=== PATIENT | male | born 1990 | race Native Hawaiian/Other Pacific Islander ===

== ENCOUNTER 2016-12-22 01:52 | Emergency (ER) | payer OTHER ==
[2016-12-22] MEDS ORDERED: BACTRIM 160MG/800MG DS TAB As Ordered ONE (02:06)
[2016-12-22] MEDS ORDERED: LIDOCAINE 2% MDV 20 ML VIAL As Ordered ONE (02:06)
--- NOTE | 2016-12-22 02:31 | EDDOCDS ---
Physician Documentation [facility] Name: Homero Lazar Age: 25 yrs Sex: Male : 1990 Arrival Date: 12/22/2016 Time: 01:52 Bed I1 / M1 Private MD: Disposition: 12/22/16 02:23 Discharged to Home/Self Care. Impression: Cutaneous abscess of left lower limb. - Condition is Stable. - Discharge Instructions: Abscess, Cellulitis, Incision and Drainage. - Prescriptions for Bactrim DS 800- 160 mg Oral Tablet - take 1 tablet by ORAL route every 12 hours for 10 days; 20 tablet. - Medication Reconciliation, Local Pharmacy Hours form. - Follow up: Private Physician; When: Call to arrange an appointment; Reason: Recheck today's complaints, Continuance of care. - Problem is new. - Symptoms have improved. - Notes: have packing removed in 2 days, continue with warm compresses over abscess/cellulitis Historical: - Allergies: no known allergies; - Home Meds: 1. none - PMHx: none; - PSHx: none; - Immunization history:: Last tetanus immunization: up to date. - Family history: Not pertinent. - Social history: Smoking status: Patient states was never smoker of tobacco. No barriers to communication noted, The patient speaks fluent Dutch. - : The pt / caregiver states he / she is not on anticoagulants. Home medication list is obtained from the patient. - Exposure Risk Screening:: None identified. Vital Signs: 12/22 01:59 BP 161 / 85; Pulse 92; Resp 18; Temp 98.3(O); Pulse Ox 97% ; Weight 127.01 kg / 280.01 tm5 lbs; Height 6 ft. 0 in. (182.88 cm); Pain 5/10; 01:59 Body Mass Index 37.97 (127.01 kg, 182.88 cm) tm5 Procedures: 02:24 I & D: Incision and drainage was performed for an abscess of the lateral aspect of left mo1 calf Prepped with hibiclense. Anesthetized with 3 ml's 2% Lidocaine. Incised with #11 blade. Drained moderate amount purulent fluid. Cultures obtained. Abscess cavity explored. Packed with iodoform gauze, the patient tolerated the procedure poorly. MDM: 02:04 Trimethoprim-Sulfamethoxazole 160 mg-800 mg (DS) 1 tabs PO once ordered. mo1 02:04 Lidocaine 20 mg/mL (2 %) 10 ml Infiltration once; to bedside ordered. mo1 02:04 Dressing ordered. mo1 02:05 Wound Culture & GS - Most Extremities Ordered. EDMS 02:29 Financial registration complete. [facility] Administered Medications: 02:23 Drug: Lidocaine 10 ml [lidocaine 20 mg/mL (2 %) injection solution (10 mL)] {Note: ld5 given to provider.} Route: Infiltration; 02:24 Drug: Trimethoprim-Sulfamethoxazole 1 tabs [sulfamethoxazole 800 mg-trimethoprim 160 mg ld5 tablet (1 tabs)] Route: PO; Signatures: Dispatcher [employer] EDMI Malia Kennedy,RN RN ld5 Jagdish Lott PA PA mo1 Jessica Lazaro [facility] Heaven Pineda,RN RN tm5 PAO
--- NOTE | 2016-12-22 02:31 | EDDOCDS ---
Nurse's Notes [facility] Name: Homero Lazar Age: 25 yrs Sex: Male : 1990 Arrival Date: 12/22/2016 Time: 01:52 Bed I1 / M1 Private MD: Diagnosis: Cutaneous abscess of left lower limb Presentation: 12/22 01:57 Presenting complaint: Patient states: per pt abscess to left posterior calf with tm5 redness & swelling to area, denies fevers. Adult Sepsis Screening: The patient does not have new or worsening altered mentation. Patient's respiratory rate is less than 22. Systolic blood pressure is greater than 100. Patient has a qSOFA score of 0- Negative Sepsis Screen. Suicide/Homicide risk assessment- the patient denies having any suicidal and/or homicidal ideations and does not present with any other emotional, behavioral or mental health complaints. 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 Transition of care: patient was not received from another setting of care. 01:57 Acuity: JACK Level 4 tm5 01:57 Method Of Arrival: Walkin/Carried/Asstd tm5 Triage Assessment: 01:59 Bite Description: Bite sustained to left calf is abscess. General: Appears in no tm5 apparent distress, Behavior is appropriate for age, cooperative. Pain: Location: left leg. HIV screening NA for this visit Offered previously. Neurological: Level of Consciousness is awake, alert, Oriented to person, place, time. Respiratory: Airway is patent Respiratory effort is even, unlabored, Respiratory pattern is regular, symmetrical. Derm: Abscess located on left calf is golf ball sized, has no drainage, is red. Musculoskeletal: No deficits noted. 02:29 Bite Description: by n/a, Animal Information: not applicable. ld5 Historical: - Allergies: no known allergies; - Home Meds: 1. none - PMHx: none; - PSHx: none; - Immunization history:: Last tetanus immunization: up to date. - Family history: Not pertinent. - Social history: Smoking status: Patient states was never smoker of tobacco. No barriers to communication noted, The patient speaks fluent Lao. - : The pt / caregiver states he / she is not on anticoagulants. Home medication list is obtained from the patient. - Exposure Risk Screening:: None identified. Screenin:01 Screening information is obtained from the patient. Fall risk: No risks identified. tm5 Assistance ADL's: requires no assistance with activities of daily living. Abuse/DV Screen: The patient / caregiver reports he/she is: not in a situation that causes fear, pain or injury. Nutritional screening: No deficits noted. Advance Directives: Currently, there is no health care proxy. There is no active DNR order. home support is adequate. Assessment: 02:27 General: Appears in no apparent distress, Behavior is cooperative. Pain: Location: left ld5 calf. Neurological: Level of Consciousness is awake, alert. Respiratory: Airway is patent Respiratory effort is even, unlabored. Derm: Skin abscess to left calf. Vital Signs: 01:59 BP 161 / 85; Pulse 92; Resp 18; Temp 98.3(O); Pulse Ox 97% ; Weight 127.01 kg; Height 6 tm5 ft. 0 in. (182.88 cm); Pain 5/10; 01:59 Body Mass Index 37.97 (127.01 kg, 182.88 cm) tm5 Vitals: 01:59 Log In Time: December 22, 2016 at 02:00. tm5 ED Course: 01:54 Patient visited by Alesia Rodríguez Reg. hs2 01:54 Patient moved to Waiting hs2 01:56 Patient moved to Triage 1 tm5 01:58 Triage Initiated tm5 02:02 Jagdish Lott PA is PHCP. mo1 02:02 Vijay Cosme DO is Attending Physician. mo1 02:03 Patient visited by Jagdish Lott PA. mo1 02:03 Patient moved to I1 / M1 mo1 02:20 Assist provider with I & D: of an abscess on calf Performed by Jagdish MONTAÑO Wound ld5 packed. iodoform gauze, Dressing with kerlix Patient tolerated well. 02:26 Wound Culture & GS - Most Extremities Sent. ld5 02:27 The patient / caregiver is instructed regarding the plan of care and ED course. Patient ld5 has correct armband on for positive identification. 02:27 No IV's were initiated during this patient's visit. ld5 02:30 Patient visited by Malia Kennedy RN. ld5 Administered Medications: 02:23 Drug: Lidocaine 10 ml [lidocaine 20 mg/mL (2 %) injection solution (10 mL)] {Note: ld5 given to provider.} Route: Infiltration; 02:24 Drug: Trimethoprim-Sulfamethoxazole 1 tabs [sulfamethoxazole 800 mg-trimethoprim 160 mg ld5 tablet (1 tabs)] Route: PO; Order Results: There are currently no results for this order. Outcome: 02:23 Discharge ordered by Provider. mo1 02:29 Discharge Assessment: Patient awake, alert and oriented x 3. No cognitive and/or ld5 functional deficits noted. Patient verbalized understanding of disposition instructions. patient administered narcotics - no. The following High Risk Discharge criteria are identified: None. Discharged to home ambulatory. Condition: stable. Discharge instructions given to patient, Instructed on discharge instructions, follow up and referral plans. medication usage, wound care, Demonstrated understanding of instructions, medications, Pt was receptive of discharge instructions/ teaching. Prescriptions given X 1. No special radiology studies were completed. Property :Personal belongings accompany Pt. 02:30 Patient left the ED. ld5 Signatures: Malia Kennedy RN RN ld5 Jagdish Lott PA PA mo1 Alesia Rodríguez, [facility] Reg hs2 Heaven PinedaRN RN tm5 MTDD
--- NOTE | 2016-12-24 03:30 | EDDOCDS ---
Physician Documentation [facility] Name: Homero Lazar Age: 25 yrs Sex: Male : 1990 Arrival Date: 12/22/2016 Time: 01:52 Bed I1 / M1 Private MD: Disposition: 12/22/16 02:23 Discharged to Home/Self Care. Impression: Cutaneous abscess of left lower limb. - Condition is Stable. - Discharge Instructions: Abscess, Cellulitis, Incision and Drainage. - Prescriptions for Bactrim DS 800- 160 mg Oral Tablet - take 1 tablet by ORAL route every 12 hours for 10 days; 20 tablet. - Medication Reconciliation, Local Pharmacy Hours form. - Follow up: Private Physician; When: Call to arrange an appointment; Reason: Recheck today's complaints, Continuance of care. - Problem is new. - Symptoms have improved. - Notes: have packing removed in 2 days, continue with warm compresses over abscess/cellulitis Historical: - Allergies: no known allergies; - Home Meds: 1. none - PMHx: none; - PSHx: none; - Immunization history:: Last tetanus immunization: up to date. - Family history: Not pertinent. - Social history: Smoking status: Patient states was never smoker of tobacco. No barriers to communication noted, The patient speaks fluent Bangladeshi. - : The pt / caregiver states he / she is not on anticoagulants. Home medication list is obtained from the patient. - Exposure Risk Screening:: None identified. Vital Signs: 12/22 01:59 BP 161 / 85; Pulse 92; Resp 18; Temp 98.3(O); Pulse Ox 97% ; Weight 127.01 kg / 280.01 tm5 lbs; Height 6 ft. 0 in. (182.88 cm); Pain 5/10; 01:59 Body Mass Index 37.97 (127.01 kg, 182.88 cm) tm5 Procedures: 02:24 I & D: Incision and drainage was performed for an abscess of the lateral aspect of left mo1 calf Prepped with hibiclense. Anesthetized with 3 ml's 2% Lidocaine. Incised with #11 blade. Drained moderate amount purulent fluid. Cultures obtained. Abscess cavity explored. Packed with iodoform gauze, the patient tolerated the procedure poorly. MDM: 02:04 Trimethoprim-Sulfamethoxazole 160 mg-800 mg (DS) 1 tabs PO once ordered. mo1 02:04 Lidocaine 20 mg/mL (2 %) 10 ml Infiltration once; to bedside ordered. mo1 02:04 Dressing ordered. mo1 02:05 Wound Culture & GS - Most Extremities Ordered. EDMS 02:29 Financial registration complete. [facility] 02:36 [facility] Payment Agreement was scanned into [employer] and attached to record. hs2 14:08 T-Sheet-- Draft Copy was scanned into [employer] and attached to record. gb Administered Medications: 02:23 Drug: Lidocaine 10 ml [lidocaine 20 mg/mL (2 %) injection solution (10 mL)] {Note: ld5 given to provider.} Route: Infiltration; 02:24 Drug: Trimethoprim-Sulfamethoxazole 1 tabs [sulfamethoxazole 800 mg-trimethoprim 160 mg ld5 tablet (1 tabs)] Route: PO; Signatures: Dispatcher [employer] EDCT Dia Lamb, Reg Reg gb Malia Kennedy,RN RN ld5 Jagdish Lott PA PA mo1 Jessica Lazaro [facility] Alesia Rodríguez, Reg Reg hs2 Heaven Pineda,RN RN tm5 The chart was reviewed and I authenticate all verbal orders and agree with the evaluation and treatment provided.Attachments: 02:36 [facility] Payment Agreement hs2 14:08 T-Sheet-- Draft Copy gb Chart Complete MTDD
--- NOTE | 2016-12-24 03:30 | EDDOCDS ---
Physician Documentation [facility] Name: Homero Lazar Age: 25 yrs Sex: Male : 1990 Arrival Date: 12/22/2016 Time: 01:52 Bed I1 / M1 Private MD: Disposition: 12/22/16 02:23 Discharged to Home/Self Care. Impression: Cutaneous abscess of left lower limb. - Condition is Stable. - Discharge Instructions: Abscess, Cellulitis, Incision and Drainage. - Prescriptions for Bactrim DS 800- 160 mg Oral Tablet - take 1 tablet by ORAL route every 12 hours for 10 days; 20 tablet. - Medication Reconciliation, Local Pharmacy Hours form. - Follow up: Private Physician; When: Call to arrange an appointment; Reason: Recheck today's complaints, Continuance of care. - Problem is new. - Symptoms have improved. - Notes: have packing removed in 2 days, continue with warm compresses over abscess/cellulitis Historical: - Allergies: no known allergies; - Home Meds: 1. none - PMHx: none; - PSHx: none; - Immunization history:: Last tetanus immunization: up to date. - Family history: Not pertinent. - Social history: Smoking status: Patient states was never smoker of tobacco. No barriers to communication noted, The patient speaks fluent Filipino. - : The pt / caregiver states he / she is not on anticoagulants. Home medication list is obtained from the patient. - Exposure Risk Screening:: None identified. Vital Signs: 12/22 01:59 BP 161 / 85; Pulse 92; Resp 18; Temp 98.3(O); Pulse Ox 97% ; Weight 127.01 kg / 280.01 tm5 lbs; Height 6 ft. 0 in. (182.88 cm); Pain 5/10; 01:59 Body Mass Index 37.97 (127.01 kg, 182.88 cm) tm5 Procedures: 02:24 I & D: Incision and drainage was performed for an abscess of the lateral aspect of left mo1 calf Prepped with hibiclense. Anesthetized with 3 ml's 2% Lidocaine. Incised with #11 blade. Drained moderate amount purulent fluid. Cultures obtained. Abscess cavity explored. Packed with iodoform gauze, the patient tolerated the procedure poorly. MDM: 02:04 Trimethoprim-Sulfamethoxazole 160 mg-800 mg (DS) 1 tabs PO once ordered. mo1 02:04 Lidocaine 20 mg/mL (2 %) 10 ml Infiltration once; to bedside ordered. mo1 02:04 Dressing ordered. mo1 02:05 Wound Culture & GS - Most Extremities Ordered. EDMS 02:29 Financial registration complete. [facility] 02:36 [facility] Payment Agreement was scanned into [employer] and attached to record. hs2 14:08 T-Sheet-- Draft Copy was scanned into [employer] and attached to record. gb Administered Medications: 02:23 Drug: Lidocaine 10 ml [lidocaine 20 mg/mL (2 %) injection solution (10 mL)] {Note: ld5 given to provider.} Route: Infiltration; 02:24 Drug: Trimethoprim-Sulfamethoxazole 1 tabs [sulfamethoxazole 800 mg-trimethoprim 160 mg ld5 tablet (1 tabs)] Route: PO; Signatures: Dispatcher [employer] EDMA Dia Lamb, Reg Reg gb Malia Kennedy,RN RN ld5 Jagdish Lott PA PA mo1 Jessica Lazaro [facility] Alesia Rodríguez, Reg Reg hs2 Heaven Pineda,RN RN tm5 The chart was reviewed and I authenticate all verbal orders and agree with the evaluation and treatment provided.Attachments: 02:36 [facility] Payment Agreement hs2 14:08 T-Sheet-- Draft Copy gb Chart Complete MTDD
--- NOTE | 2016-12-24 03:31 | EDDOCDS ---
Nurse's Notes [facility] Name: Homero Lazar Age: 25 yrs Sex: Male : 1990 Arrival Date: 12/22/2016 Time: 01:52 Bed I1 / M1 Private MD: Diagnosis: Cutaneous abscess of left lower limb Presentation: 12/22 01:57 Presenting complaint: Patient states: per pt abscess to left posterior calf with tm5 redness & swelling to area, denies fevers. Adult Sepsis Screening: The patient does not have new or worsening altered mentation. Patient's respiratory rate is less than 22. Systolic blood pressure is greater than 100. Patient has a qSOFA score of 0- Negative Sepsis Screen. Suicide/Homicide risk assessment- the patient denies having any suicidal and/or homicidal ideations and does not present with any other emotional, behavioral or mental health complaints. 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 Transition of care: patient was not received from another setting of care. 01:57 Acuity: JACK Level 4 tm5 01:57 Method Of Arrival: Walkin/Carried/Asstd tm5 Triage Assessment: 01:59 Bite Description: Bite sustained to left calf is abscess. General: Appears in no tm5 apparent distress, Behavior is appropriate for age, cooperative. Pain: Location: left leg. HIV screening NA for this visit Offered previously. Neurological: Level of Consciousness is awake, alert, Oriented to person, place, time. Respiratory: Airway is patent Respiratory effort is even, unlabored, Respiratory pattern is regular, symmetrical. Derm: Abscess located on left calf is golf ball sized, has no drainage, is red. Musculoskeletal: No deficits noted. 02:29 Bite Description: by n/a, Animal Information: not applicable. ld5 Historical: - Allergies: no known allergies; - Home Meds: 1. none - PMHx: none; - PSHx: none; - Immunization history:: Last tetanus immunization: up to date. - Family history: Not pertinent. - Social history: Smoking status: Patient states was never smoker of tobacco. No barriers to communication noted, The patient speaks fluent Persian. - : The pt / caregiver states he / she is not on anticoagulants. Home medication list is obtained from the patient. - Exposure Risk Screening:: None identified. Screenin:01 Screening information is obtained from the patient. Fall risk: No risks identified. tm5 Assistance ADL's: requires no assistance with activities of daily living. Abuse/DV Screen: The patient / caregiver reports he/she is: not in a situation that causes fear, pain or injury. Nutritional screening: No deficits noted. Advance Directives: Currently, there is no health care proxy. There is no active DNR order. home support is adequate. Assessment: 02:27 General: Appears in no apparent distress, Behavior is cooperative. Pain: Location: left ld5 calf. Neurological: Level of Consciousness is awake, alert. Respiratory: Airway is patent Respiratory effort is even, unlabored. Derm: Skin abscess to left calf. Vital Signs: 01:59 BP 161 / 85; Pulse 92; Resp 18; Temp 98.3(O); Pulse Ox 97% ; Weight 127.01 kg; Height 6 tm5 ft. 0 in. (182.88 cm); Pain 5/10; 01:59 Body Mass Index 37.97 (127.01 kg, 182.88 cm) tm5 Vitals: 01:59 Log In Time: December 22, 2016 at 02:00. tm5 ED Course: 01:54 Patient visited by Alesia Rodríguez Reg. hs2 01:54 Patient moved to Waiting hs2 01:56 Patient moved to Triage 1 tm5 01:58 Triage Initiated tm5 02:02 Jagdish Lott PA is PHCP. mo1 02:02 Vijay Cosme DO is Attending Physician. mo1 02:03 Patient visited by Jagdish Lott PA. mo1 02:03 Patient moved to I1 / M1 mo1 02:20 Assist provider with I & D: of an abscess on calf Performed by Jagdish MONTAÑO Wound ld5 packed. iodoform gauze, Dressing with kerlix Patient tolerated well. 02:26 Wound Culture & GS - Most Extremities Sent. ld5 02:27 The patient / caregiver is instructed regarding the plan of care and ED course. Patient ld5 has correct armband on for positive identification. 02:27 No IV's were initiated during this patient's visit. ld5 02:30 Patient visited by Malia Kennedy RN. ld5 02:36 [facility] [place] Payment Agreement was scanned into [employer] and attached to record. hs2 14:08 T-Sheet-- Draft Copy was scanned into [employer] and attached to record. gb Administered Medications: 02:23 Drug: Lidocaine 10 ml [lidocaine 20 mg/mL (2 %) injection solution (10 mL)] {Note: ld5 given to provider.} Route: Infiltration; 02:24 Drug: Trimethoprim-Sulfamethoxazole 1 tabs [sulfamethoxazole 800 mg-trimethoprim 160 mg ld5 tablet (1 tabs)] Route: PO; Order Results: Lab Order: Wound Culture & GS - Most Extremities; SPEC'M 12/22/16 02:21 Test: GRAM STAIN; Value: GRAM STAIN RESULT; Status: F Test: GRAM STAIN; Value: MANY RBCS; Status: F Test: GRAM STAIN; Value: FEW WBCS; Status: F Test: GRAM STAIN; Value: MANY GRAM POSITIVE COCCI IN PAIRS; Status: F Outcome: 02:23 Discharge ordered by Provider. mo1 02:29 Discharge Assessment: Patient awake, alert and oriented x 3. No cognitive and/or ld5 functional deficits noted. Patient verbalized understanding of disposition instructions. patient administered narcotics - no. The following High Risk Discharge criteria are identified: None. Discharged to home ambulatory. Condition: stable. Discharge instructions given to patient, Instructed on discharge instructions, follow up and referral plans. medication usage, wound care, Demonstrated understanding of instructions, medications, Pt was receptive of discharge instructions/ teaching. Prescriptions given X 1. No special radiology studies were completed. Property :Personal belongings accompany Pt. 02:30 Patient left the ED. ld5 Signatures: Dia Lamb, Reg Reg gb Malia Kennedy,RN RN ld5 Jagdish Lott PA PA mo1 Alesia Rodríguez, Reg Reg hs2 Heaven Pineda RN RN tm5 Chart Complete MTDD
--- NOTE | 2016-12-26 14:49 | EDDOCDS ---
Physician Documentation [facility] Name: Homero Lazar Age: 25 yrs Sex: Male : 1990 Arrival Date: 12/22/2016 Time: 01:52 Bed I1 / M1 Private MD: Disposition: 12/22/16 02:23 Discharged to Home/Self Care. Impression: Cutaneous abscess of left lower limb. - Condition is Stable. - Discharge Instructions: Abscess, Cellulitis, Incision and Drainage. - Prescriptions for Bactrim DS 800- 160 mg Oral Tablet - take 1 tablet by ORAL route every 12 hours for 10 days; 20 tablet. - Medication Reconciliation, Local Pharmacy Hours form. - Follow up: Private Physician; When: Call to arrange an appointment; Reason: Recheck today's complaints, Continuance of care. - Problem is new. - Symptoms have improved. - Notes: have packing removed in 2 days, continue with warm compresses over abscess/cellulitis Historical: - Allergies: no known allergies; - Home Meds: 1. none - PMHx: none; - PSHx: none; - Immunization history:: Last tetanus immunization: up to date. - Family history: Not pertinent. - Social history: Smoking status: Patient states was never smoker of tobacco. No barriers to communication noted, The patient speaks fluent Haitian. - : The pt / caregiver states he / she is not on anticoagulants. Home medication list is obtained from the patient. - Exposure Risk Screening:: None identified. Vital Signs: 12/22 01:59 BP 161 / 85; Pulse 92; Resp 18; Temp 98.3(O); Pulse Ox 97% ; Weight 127.01 kg / 280.01 tm5 lbs; Height 6 ft. 0 in. (182.88 cm); Pain 5/10; 01:59 Body Mass Index 37.97 (127.01 kg, 182.88 cm) tm5 Procedures: 02:24 I & D: Incision and drainage was performed for an abscess of the lateral aspect of left mo1 calf Prepped with hibiclense. Anesthetized with 3 ml's 2% Lidocaine. Incised with #11 blade. Drained moderate amount purulent fluid. Cultures obtained. Abscess cavity explored. Packed with iodoform gauze, the patient tolerated the procedure poorly. MDM: 02:04 Trimethoprim-Sulfamethoxazole 160 mg-800 mg (DS) 1 tabs PO once ordered. mo1 02:04 Lidocaine 20 mg/mL (2 %) 10 ml Infiltration once; to bedside ordered. mo1 02:04 Dressing ordered. mo1 02:05 Wound Culture & GS - Most Extremities Ordered. EDMS 02:29 Financial registration complete. [facility] 02:36 [facility] Payment Agreement was scanned into [employer] and attached to record. hs2 14:08 T-Sheet-- Draft Copy was scanned into [employer] and attached to record. gb Administered Medications: 02:23 Drug: Lidocaine 10 ml [lidocaine 20 mg/mL (2 %) injection solution (10 mL)] {Note: ld5 given to provider.} Route: Infiltration; 02:24 Drug: Trimethoprim-Sulfamethoxazole 1 tabs [sulfamethoxazole 800 mg-trimethoprim 160 mg ld5 tablet (1 tabs)] Route: PO; Signatures: Dispatcher [employer] EDNY Dia Lamb, Reg Reg gb Malia Kennedy,RN RN ld5 Jagdish Lott PA PA mo1 Jessica Lazaro [facility] Alesia Rodríguez, Reg Reg hs2 Heaven Pineda,RN RN tm5 The chart was reviewed and I authenticate all verbal orders and agree with the evaluation and treatment provided.Attachments: 02:36 [facility] Payment Agreement hs2 14:08 T-Sheet-- Draft Copy gb Chart Complete MTDD
--- NOTE | 2016-12-26 14:49 | EDDOCDS ---
Physician Documentation [facility] Name: Homero Lazar Age: 25 yrs Sex: Male : 1990 Arrival Date: 12/22/2016 Time: 01:52 Bed I1 / M1 Private MD: Disposition: 12/22/16 02:23 Discharged to Home/Self Care. Impression: Cutaneous abscess of left lower limb. - Condition is Stable. - Discharge Instructions: Abscess, Cellulitis, Incision and Drainage. - Prescriptions for Bactrim DS 800- 160 mg Oral Tablet - take 1 tablet by ORAL route every 12 hours for 10 days; 20 tablet. - Medication Reconciliation, Local Pharmacy Hours form. - Follow up: Private Physician; When: Call to arrange an appointment; Reason: Recheck today's complaints, Continuance of care. - Problem is new. - Symptoms have improved. - Notes: have packing removed in 2 days, continue with warm compresses over abscess/cellulitis Historical: - Allergies: no known allergies; - Home Meds: 1. none - PMHx: none; - PSHx: none; - Immunization history:: Last tetanus immunization: up to date. - Family history: Not pertinent. - Social history: Smoking status: Patient states was never smoker of tobacco. No barriers to communication noted, The patient speaks fluent Samoan. - : The pt / caregiver states he / she is not on anticoagulants. Home medication list is obtained from the patient. - Exposure Risk Screening:: None identified. Vital Signs: 12/22 01:59 BP 161 / 85; Pulse 92; Resp 18; Temp 98.3(O); Pulse Ox 97% ; Weight 127.01 kg / 280.01 tm5 lbs; Height 6 ft. 0 in. (182.88 cm); Pain 5/10; 01:59 Body Mass Index 37.97 (127.01 kg, 182.88 cm) tm5 Procedures: 02:24 I & D: Incision and drainage was performed for an abscess of the lateral aspect of left mo1 calf Prepped with hibiclense. Anesthetized with 3 ml's 2% Lidocaine. Incised with #11 blade. Drained moderate amount purulent fluid. Cultures obtained. Abscess cavity explored. Packed with iodoform gauze, the patient tolerated the procedure poorly. MDM: 02:04 Trimethoprim-Sulfamethoxazole 160 mg-800 mg (DS) 1 tabs PO once ordered. mo1 02:04 Lidocaine 20 mg/mL (2 %) 10 ml Infiltration once; to bedside ordered. mo1 02:04 Dressing ordered. mo1 02:05 Wound Culture & GS - Most Extremities Ordered. EDMS 02:29 Financial registration complete. [facility] 02:36 [facility] Payment Agreement was scanned into [employer] and attached to record. hs2 14:08 T-Sheet-- Draft Copy was scanned into [employer] and attached to record. gb Administered Medications: 02:23 Drug: Lidocaine 10 ml [lidocaine 20 mg/mL (2 %) injection solution (10 mL)] {Note: ld5 given to provider.} Route: Infiltration; 02:24 Drug: Trimethoprim-Sulfamethoxazole 1 tabs [sulfamethoxazole 800 mg-trimethoprim 160 mg ld5 tablet (1 tabs)] Route: PO; Signatures: Dispatcher [employer] EDPA Dia Lamb, Reg Reg gb Malia Kennedy,RN RN ld5 Jagdish Lott PA PA mo1 Jessica Lazaro [facility] Alesia Rodríguez, Reg Reg hs2 Heaven Pineda,RN RN tm5 The chart was reviewed and I authenticate all verbal orders and agree with the evaluation and treatment provided.Attachments: 02:36 [facility] Payment Agreement hs2 14:08 T-Sheet-- Draft Copy gb Chart Complete MTDD
--- NOTE | 2016-12-26 14:49 | EDDOCDS ---
Nurse's Notes [facility] Name: Homero Lazar Age: 25 yrs Sex: Male : 1990 Arrival Date: 12/22/2016 Time: 01:52 Bed I1 / M1 Private MD: Diagnosis: Cutaneous abscess of left lower limb Presentation: 12/22 01:57 Presenting complaint: Patient states: per pt abscess to left posterior calf with tm5 redness & swelling to area, denies fevers. Adult Sepsis Screening: The patient does not have new or worsening altered mentation. Patient's respiratory rate is less than 22. Systolic blood pressure is greater than 100. Patient has a qSOFA score of 0- Negative Sepsis Screen. Suicide/Homicide risk assessment- the patient denies having any suicidal and/or homicidal ideations and does not present with any other emotional, behavioral or mental health complaints. 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 Transition of care: patient was not received from another setting of care. 01:57 Acuity: JACK Level 4 tm5 01:57 Method Of Arrival: Walkin/Carried/Asstd tm5 Triage Assessment: 01:59 Bite Description: Bite sustained to left calf is abscess. General: Appears in no tm5 apparent distress, Behavior is appropriate for age, cooperative. Pain: Location: left leg. HIV screening NA for this visit Offered previously. Neurological: Level of Consciousness is awake, alert, Oriented to person, place, time. Respiratory: Airway is patent Respiratory effort is even, unlabored, Respiratory pattern is regular, symmetrical. Derm: Abscess located on left calf is golf ball sized, has no drainage, is red. Musculoskeletal: No deficits noted. 02:29 Bite Description: by n/a, Animal Information: not applicable. ld5 Historical: - Allergies: no known allergies; - Home Meds: 1. none - PMHx: none; - PSHx: none; - Immunization history:: Last tetanus immunization: up to date. - Family history: Not pertinent. - Social history: Smoking status: Patient states was never smoker of tobacco. No barriers to communication noted, The patient speaks fluent Pashto. - : The pt / caregiver states he / she is not on anticoagulants. Home medication list is obtained from the patient. - Exposure Risk Screening:: None identified. Screenin:01 Screening information is obtained from the patient. Fall risk: No risks identified. tm5 Assistance ADL's: requires no assistance with activities of daily living. Abuse/DV Screen: The patient / caregiver reports he/she is: not in a situation that causes fear, pain or injury. Nutritional screening: No deficits noted. Advance Directives: Currently, there is no health care proxy. There is no active DNR order. home support is adequate. Assessment: 02:27 General: Appears in no apparent distress, Behavior is cooperative. Pain: Location: left ld5 calf. Neurological: Level of Consciousness is awake, alert. Respiratory: Airway is patent Respiratory effort is even, unlabored. Derm: Skin abscess to left calf. Vital Signs: 01:59 BP 161 / 85; Pulse 92; Resp 18; Temp 98.3(O); Pulse Ox 97% ; Weight 127.01 kg; Height 6 tm5 ft. 0 in. (182.88 cm); Pain 5/10; 01:59 Body Mass Index 37.97 (127.01 kg, 182.88 cm) tm5 Vitals: 01:59 Log In Time: December 22, 2016 at 02:00. tm5 ED Course: 01:54 Patient visited by Alesia Rodríguez Reg. hs2 01:54 Patient moved to Waiting hs2 01:56 Patient moved to Triage 1 tm5 01:58 Triage Initiated tm5 02:02 Jagdish Lott PA is PHCP. mo1 02:02 Vijay Cosme DO is Attending Physician. mo1 02:03 Patient visited by Jagdish Lott PA. mo1 02:03 Patient moved to I1 / M1 mo1 02:20 Assist provider with I & D: of an abscess on calf Performed by Jagdish MONTAÑO Wound ld5 packed. iodoform gauze, Dressing with kerlix Patient tolerated well. 02:26 Wound Culture & GS - Most Extremities Sent. ld5 02:27 The patient / caregiver is instructed regarding the plan of care and ED course. Patient ld5 has correct armband on for positive identification. 02:27 No IV's were initiated during this patient's visit. ld5 02:30 Patient visited by Malia Kennedy RN. ld5 02:36 [facility] Payment Agreement was scanned into [employer] and attached to record. hs2 14:08 T-Sheet-- Draft Copy was scanned into [employer] and attached to record. gb Administered Medications: 02:23 Drug: Lidocaine 10 ml [lidocaine 20 mg/mL (2 %) injection solution (10 mL)] {Note: ld5 given to provider.} Route: Infiltration; 02:24 Drug: Trimethoprim-Sulfamethoxazole 1 tabs [sulfamethoxazole 800 mg-trimethoprim 160 mg ld5 tablet (1 tabs)] Route: PO; Order Results: Lab Order: Wound Culture & GS - Most Extremities; SPEC'M 12/22/16 02:21 Test: GRAM STAIN; Value: GRAM STAIN RESULT; Status: F Test: GRAM STAIN; Value: MANY RBCS; Status: F Test: GRAM STAIN; Value: FEW WBCS; Status: F Test: GRAM STAIN; Value: MANY GRAM POSITIVE COCCI IN PAIRS; Status: F Test: WOUND CULTURE; Value: <EXTERNAL COMMENT eCWMed> FULL REPORT IN LAB NOTES (eCW and [employer]ent).; Status: F Test: WOUND CULTURE; Value: ORGANISM 1: STAPHYLOCOCCUS AUREUS; Status: F Test: WOUND CULTURE; Value: STAPHYLOCOCCUS AUREUS; Status: F Test: WOUND CULTURE; Value: QUANTITY OF GROWTH HEAVY; Status: F Test: WOUND CULTURE; Value: GRAM POS SENSI - VITEK 67; Status: F Test: WOUND CULTURE; Value: Method: VIT2; Status: F Test: WOUND CULTURE; Value: TETRACYCLINE <=1 S; Status: F Test: WOUND CULTURE; Value: PENICILLIN G 0.06 R; Status: F Test: WOUND CULTURE; Value: TRIMETHOPRIM/SULFAMETHOXAZOLE <=10 S; Status: F Test: WOUND CULTURE; Value: ERYTHROMYCIN <=0.25 S; Status: F Test: WOUND CULTURE; Value: GENTAMICIN <=0.5 S; Status: F Test: WOUND CULTURE; Value: CLINDAMYCIN <=0.25 S; Status: F Test: WOUND CULTURE; Value: OXACILLIN <=0.25 S; Status: F Test: WOUND CULTURE; Value: VANCOMYCIN <=0.5 S; Status: F Test: WOUND CULTURE; Value: LINEZOLID (ZYVOX) 2 S; Status: F Outcome: 02:23 Discharge ordered by Provider. mo1 02:29 Discharge Assessment: Patient awake, alert and oriented x 3. No cognitive and/or ld5 functional deficits noted. Patient verbalized understanding of disposition instructions. patient administered narcotics - no. The following High Risk Discharge criteria are identified: None. Discharged to home ambulatory. Condition: stable. Discharge instructions given to patient, Instructed on discharge instructions, follow up and referral plans. medication usage, wound care, Demonstrated understanding of instructions, medications, Pt was receptive of discharge instructions/ teaching. Prescriptions given X 1. No special radiology studies were completed. Property :Personal belongings accompany Pt. 02:30 Patient left the ED. ld5 Signatures: Dia Lamb, Reg Reg gb Malia Kennedy,RN RN ld5 Jagdish Lott PA PA mo1 Alesia Rodríguez, Reg Reg hs2 Heaven PinedaRN RN tm5 Chart Complete MTDD
== END 2016-12-22 02:30 | disposition home or self-care (01) ==
LOC: M ED 01:52
DX: L02.416 Cutaneous abscess of left lower limb (principal)

== ENCOUNTER 2016-12-23 18:39 | Emergency (ER) | payer OTHER ==
[2016-12-23] MEDS ORDERED: BACTRIM 160MG/800MG DS TAB As Ordered ONE (19:22)
--- NOTE | 2016-12-23 19:36 | EDDOCDS ---
Nurse's Notes [facility] Name: Homero Lazar Age: 25 yrs Sex: Male : 1990 Arrival Date: 12/23/2016 Time: 18:39 Bed TR5 Private MD: Other - Complete Info On Cds Diagnosis: Cutaneous abscess of left lower limb-Recheck Presentation: 12/23 18:44 Presenting complaint: Patient states: had abscess drained and packed early Sunday am. srm here for recheck and to have packing removed. left lower leg. Adult Sepsis Screening: The patient does not have new or worsening altered mentation. Patient's respiratory rate is less than 22. Systolic blood pressure is greater than 100. Patient has a qSOFA score of 0- Negative Sepsis Screen. Suicide/Homicide risk assessment- the patient denies having any suicidal and/or homicidal ideations and does not present with any other emotional, behavioral or mental health complaints. 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 Transition of care: patient was not received from another setting of care. 18:44 Acuity: JACK Level 4 [facility] 18:44 Method Of Arrival: Walkin/Carried/Asstd [facility] Triage Assessment: 18:46 General: Appears in no apparent distress, Behavior is appropriate for age, cooperative. srm Pain: Pain currently is 6 out of 10 on a pain scale. HIV screening NA for this visit Offered previously. Historical: - Allergies: no known allergies; - Home Meds: 1. Bactrim DS 800-160 mg Oral tab 1 tab every 12 hours (Last dose: 12/23/2016 07:00) - PMHx: none; - PSHx: none; - Social history: Smoking status: Patient states was never smoker of tobacco. No barriers to communication noted, The patient speaks fluent Hong Konger, Speaks appropriately for age. - Family history: Not pertinent. - : The pt / caregiver states he / she is not on anticoagulants. Home medication list is obtained from the patient. - Exposure Risk Screening:: None identified. Screenin:33 Screening information is obtained from the patient. Fall risk: No risks identified. cz Assistance ADL's: requires no assistance with activities of daily living. Abuse/DV Screen: The patient / caregiver reports he/she is: not in a situation that causes fear, pain or injury. There is an injury present. Nutritional screening: No deficits noted. Advance Directives: Currently, there is no health care proxy. There is no active DNR order. There is no living will. There is no Power of Deburr Technician. Advance directive information has not previously been placed in an [facility] medical record. Further advance directive information is declined. home support is adequate. Assessment: 19:33 Reassessment: Patient appears in no apparent distress at this time. General: Behavior cz is appropriate for age. Vital Signs: 18:41 BP 126 / 66; Pulse 75; Resp 18 S; Temp 96.4(O); Pulse Ox 96% on R/A; Weight 127.01 kg gr2 (R); Height 6 ft. 0 in. (182.88 cm) (R); Pain 5/10; 18:41 Body Mass Index 37.97 (127.01 kg, 182.88 cm) gr2 Vitals: 18:41 Log In Time: December 23, 2016 at 18:41. gr2 ED Course: 18:41 Patient visited by Jigna Mustafa. gr2 18:41 Other - Complete Info On Cds is Private Physician. gr2 18:41 Patient moved to Waiting gr2 18:42 Patient visited by Jigna Mustafa. gr2 18:43 Patient moved to Pre RCE gr2 18:45 Triage Initiated srm 19:08 Umberto Trivedi PA-C is PHCP. dk1 19:08 Jorge Victoria DO is Attending Physician. dk1 19:08 Patient moved to Triage 1 cz 19:10 Patient visited by Umberto Trivedi PA-C. dk1 19:24 [facility]. dk1 19:27 Patient moved to TR5 cz 19:30 Patient name changed from Homero\S\W\S\Pututau\S\ to Homero\S\Sanchez\S\Pututau. EDMS 19:33 The patient / caregiver is instructed regarding the plan of care and ED course. cz 19:33 No IV's were initiated during this patient's visit. Assist provider with I & D: cz repacking of I&D site. 19:34 [facility] Payment Agreement was scanned into [employer] and attached to record. gb Administered Medications: 19:26 Drug: Trimethoprim-Sulfamethoxazole (MRSA dose) 2 tabs [sulfamethoxazole 800 cz mg-trimethoprim 160 mg tablet (2 tabs)] Route: PO; Order Results: There are currently no results for this order. Outcome: 19:24 Discharge ordered by Provider. dk1 19:33 Discharge Assessment: Patient awake, alert and oriented x 3. No cognitive and/or cz functional deficits noted. Patient verbalized understanding of disposition instructions. patient administered narcotics - no. The following High Risk Discharge criteria are identified: None. Discharged to home ambulatory. Condition: stable. Discharge instructions given to patient, Instructed on discharge instructions, follow up and referral plans. Demonstrated understanding of instructions, Pt was receptive of discharge instructions/ teaching. No special radiology studies were completed. Property :Personal belongings accompany Pt. 19:35 Patient left the ED. cz Signatures: Dispatcher [employer] EDMS Alexia Krishnan, RN RN Daniel Tucker RN RN Dia Romero, Umberto Kim, PA-C PA-C dk1 Jigna Mustafa gr2 MTDD
--- NOTE | 2016-12-23 19:36 | EDDOCDS ---
Physician Documentation [facility] Name: Homero Lazar Age: 25 yrs Sex: Male : 1990 Arrival Date: 12/23/2016 Time: 18:39 Bed TR5 Private MD: Other - Complete Info On Cds Disposition: 12/23/16 19:24 Discharged to Home/Self Care. Impression: Cutaneous abscess of left lower limb - Recheck. - Condition is Stable. - Discharge Instructions: Abscess. - Medication Reconciliation, Local Pharmacy Hours form. - Follow up: Jennifer Yañez [facility]; When: 1 - 2 days; Reason: Recheck today's complaints, Continuance of care. Follow up: Emergency Department; When: As needed; Reason: Worsening of conditions. - Problem is an ongoing problem. - Symptoms have improved. Historical: - Allergies: no known allergies; - Home Meds: 1. Bactrim DS 800-160 mg Oral tab 1 tab every 12 hours (Last dose: 12/23/2016 07:00) - PMHx: none; - PSHx: none; - Social history: Smoking status: Patient states was never smoker of tobacco. No barriers to communication noted, The patient speaks fluent Greek, Speaks appropriately for age. - Family history: Not pertinent. - : The pt / caregiver states he / she is not on anticoagulants. Home medication list is obtained from the patient. - Exposure Risk Screening:: None identified. Vital Signs: 12/23 18:41 BP 126 / 66; Pulse 75; Resp 18 S; Temp 96.4(O); Pulse Ox 96% on R/A; Weight 127.01 kg / gr2 280.01 lbs (R); Height 6 ft. 0 in. (182.88 cm) (R); Pain 5/10; 18:41 Body Mass Index 37.97 (127.01 kg, 182.88 cm) gr2 MDM: 19:16 Trimethoprim-Sulfamethoxazole (MRSA dose) 160 mg-800 mg (DS) 2 tabs PO once ordered. dk1 19:16 Wound Care ordered. dk1 19:27 Financial registration complete. 19:34 [facility] Payment Agreement was scanned into [employer] and attached to record. gb Administered Medications: 19:26 Drug: Trimethoprim-Sulfamethoxazole (MRSA dose) 2 tabs [sulfamethoxazole 800 cz mg-trimethoprim 160 mg tablet (2 tabs)] Route: PO; Signatures: Alexia Krishnan RN RN Daniel Tucker RN RN cz Barnhardt, Gloria, Mauricio Martínez gb Umberto Trivedi, ISABEL kaur1 The chart was reviewed and I authenticate all verbal orders and agree with the evaluation and treatment provided.Attachments: 19:34 [facility] Payment Agreement gb MTDD
--- NOTE | 2016-12-25 20:35 | EDDOCDS ---
Physician Documentation [facility] Name: Homero Lazar Age: 25 yrs Sex: Male : 1990 Arrival Date: 12/23/2016 Time: 18:39 Bed TR5 Private MD: Other - Complete Info On Cds Disposition: 12/23/16 19:24 Discharged to Home/Self Care. Impression: Cutaneous abscess of left lower limb - Recheck. - Condition is Stable. - Discharge Instructions: Abscess. - Medication Reconciliation, Local Pharmacy Hours form. - Follow up: Jennifer Yañez [facility]; When: 1 - 2 days; Reason: Recheck today's complaints, Continuance of care. Follow up: Emergency Department; When: As needed; Reason: Worsening of conditions. - Problem is an ongoing problem. - Symptoms have improved. Historical: - Allergies: no known allergies; - Home Meds: 1. Bactrim DS 800-160 mg Oral tab 1 tab every 12 hours (Last dose: 12/23/2016 07:00) - PMHx: none; - PSHx: none; - Social history: Smoking status: Patient states was never smoker of tobacco. No barriers to communication noted, The patient speaks fluent Irish, Speaks appropriately for age. - Family history: Not pertinent. - : The pt / caregiver states he / she is not on anticoagulants. Home medication list is obtained from the patient. - Exposure Risk Screening:: None identified. Vital Signs: 12/23 18:41 BP 126 / 66; Pulse 75; Resp 18 S; Temp 96.4(O); Pulse Ox 96% on R/A; Weight 127.01 kg / gr2 280.01 lbs (R); Height 6 ft. 0 in. (182.88 cm) (R); Pain 5/10; 18:41 Body Mass Index 37.97 (127.01 kg, 182.88 cm) gr2 MDM: 19:16 Trimethoprim-Sulfamethoxazole (MRSA dose) 160 mg-800 mg (DS) 2 tabs PO once ordered. dk1 19:16 Wound Care ordered. dk1 19:27 Financial registration complete. gb 19:34 [facility] Payment Agreement was scanned into [employer] and attached to record. gb 12/24 12:11 T-Sheet-- Draft Copy was scanned into [employer] and attached to record. gb Administered Medications: 12/23 19:26 Drug: Trimethoprim-Sulfamethoxazole (MRSA dose) 2 tabs [sulfamethoxazole 800 cz mg-trimethoprim 160 mg tablet (2 tabs)] Route: PO; Signatures: Alexia Krishnan, RN RN srm Daniel Jeffery RN RN cz Dia Lamb, Reg Reg gb Umberto Trivedi, ISABEL angela The chart was reviewed and I authenticate all verbal orders and agree with the evaluation and treatment provided.Attachments: 19:34 [facility] Payment Agreement gb 12/24 12:11 T-Sheet-- Draft Copy gb Chart Complete MTDD
--- NOTE | 2016-12-25 20:35 | EDDOCDS ---
Nurse's Notes [facility] Name: Homero Lazar Age: 25 yrs Sex: Male : 1990 Arrival Date: 12/23/2016 Time: 18:39 Bed TR5 Private MD: Other - Complete Info On Cds Diagnosis: Cutaneous abscess of left lower limb-Recheck Presentation: 12/23 18:44 Presenting complaint: Patient states: had abscess drained and packed early Sunday am. srm here for recheck and to have packing removed. left lower leg. Adult Sepsis Screening: The patient does not have new or worsening altered mentation. Patient's respiratory rate is less than 22. Systolic blood pressure is greater than 100. Patient has a qSOFA score of 0- Negative Sepsis Screen. Suicide/Homicide risk assessment- the patient denies having any suicidal and/or homicidal ideations and does not present with any other emotional, behavioral or mental health complaints. 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 Transition of care: patient was not received from another setting of care. 18:44 Acuity: JACK Level 4 [facility] 18:44 Method Of Arrival: Walkin/Carried/Asstd [facility] Triage Assessment: 18:46 General: Appears in no apparent distress, Behavior is appropriate for age, cooperative. srm Pain: Pain currently is 6 out of 10 on a pain scale. HIV screening NA for this visit Offered previously. Historical: - Allergies: no known allergies; - Home Meds: 1. Bactrim DS 800-160 mg Oral tab 1 tab every 12 hours (Last dose: 12/23/2016 07:00) - PMHx: none; - PSHx: none; - Social history: Smoking status: Patient states was never smoker of tobacco. No barriers to communication noted, The patient speaks fluent Macedonian, Speaks appropriately for age. - Family history: Not pertinent. - : The pt / caregiver states he / she is not on anticoagulants. Home medication list is obtained from the patient. - Exposure Risk Screening:: None identified. Screenin:33 Screening information is obtained from the patient. Fall risk: No risks identified. cz Assistance ADL's: requires no assistance with activities of daily living. Abuse/DV Screen: The patient / caregiver reports he/she is: not in a situation that causes fear, pain or injury. There is an injury present. Nutritional screening: No deficits noted. Advance Directives: Currently, there is no health care proxy. There is no active DNR order. There is no living will. There is no Power of Case Sealer. Advance directive information has not previously been placed in an [facility] medical record. Further advance directive information is declined. home support is adequate. Assessment: 19:33 Reassessment: Patient appears in no apparent distress at this time. General: Behavior cz is appropriate for age. Vital Signs: 18:41 BP 126 / 66; Pulse 75; Resp 18 S; Temp 96.4(O); Pulse Ox 96% on R/A; Weight 127.01 kg gr2 (R); Height 6 ft. 0 in. (182.88 cm) (R); Pain 5/10; 18:41 Body Mass Index 37.97 (127.01 kg, 182.88 cm) gr2 Vitals: 18:41 Log In Time: December 23, 2016 at 18:41. gr2 ED Course: 18:41 Patient visited by Jigna Mustafa. gr2 18:41 Other - Complete Info On Cds is Private Physician. gr2 18:41 Patient moved to Waiting gr2 18:42 Patient visited by Jigna Mustafa. gr2 18:43 Patient moved to Pre RCE gr2 18:45 Triage Initiated srm 19:08 Umberto Trivedi PA-C is PHCP. dk1 19:08 Jorge Victoria DO is Attending Physician. dk1 19:08 Patient moved to Triage 1 cz 19:10 Patient visited by Umberto Trivedi PA-C. dk1 19:24 [facility] is Referral Physician. dk1 19:27 Patient moved to TR5 cz 19:30 Patient name changed from Homero\S\W\S\Pututau\S\ to Homero\S\Sanchez\S\Pututau. EDMS 19:33 The patient / caregiver is instructed regarding the plan of care and ED course. cz 19:33 No IV's were initiated during this patient's visit. Assist provider with I & D: cz repacking of I&D site. 19:34 [place] [place] Payment Agreement was scanned into [employer] and attached to record. emery 12/24 12:11 T-Sheet-- Draft Copy was scanned into [employer] and attached to record. gb Administered Medications: 12/23 19:26 Drug: Trimethoprim-Sulfamethoxazole (MRSA dose) 2 tabs [sulfamethoxazole 800 cz mg-trimethoprim 160 mg tablet (2 tabs)] Route: PO; Order Results: There are currently no results for this order. Outcome: 19:24 Discharge ordered by Provider. dk1 19:33 Discharge Assessment: Patient awake, alert and oriented x 3. No cognitive and/or cz functional deficits noted. Patient verbalized understanding of disposition instructions. patient administered narcotics - no. The following High Risk Discharge criteria are identified: None. Discharged to home ambulatory. Condition: stable. Discharge instructions given to patient, Instructed on discharge instructions, follow up and referral plans. Demonstrated understanding of instructions, Pt was receptive of discharge instructions/ teaching. No special radiology studies were completed. Property :Personal belongings accompany Pt. 19:35 Patient left the ED. cz Signatures: Dispatcher [employer] EDMS Alexia Krishnan, Daniel Kaplan RN, RN RN cz Dia Lamb, Mauricio Reg Umberto Andrew PA-C PA-C dk1 Jigna Mustafa gr2 Chart Complete MTDD
--- NOTE | 2016-12-25 20:35 | EDDOCDS ---
Physician Documentation [facility] Name: Homero Lazar Age: 25 yrs Sex: Male : 1990 Arrival Date: 12/23/2016 Time: 18:39 Bed TR5 Private MD: Other - Complete Info On Cds Disposition: 12/23/16 19:24 Discharged to Home/Self Care. Impression: Cutaneous abscess of left lower limb - Recheck. - Condition is Stable. - Discharge Instructions: Abscess. - Medication Reconciliation, Local Pharmacy Hours form. - Follow up: Jennifer Yañez [facility]; When: 1 - 2 days; Reason: Recheck today's complaints, Continuance of care. Follow up: Emergency Department; When: As needed; Reason: Worsening of conditions. - Problem is an ongoing problem. - Symptoms have improved. Historical: - Allergies: no known allergies; - Home Meds: 1. Bactrim DS 800-160 mg Oral tab 1 tab every 12 hours (Last dose: 12/23/2016 07:00) - PMHx: none; - PSHx: none; - Social history: Smoking status: Patient states was never smoker of tobacco. No barriers to communication noted, The patient speaks fluent Israeli, Speaks appropriately for age. - Family history: Not pertinent. - : The pt / caregiver states he / she is not on anticoagulants. Home medication list is obtained from the patient. - Exposure Risk Screening:: None identified. Vital Signs: 12/23 18:41 BP 126 / 66; Pulse 75; Resp 18 S; Temp 96.4(O); Pulse Ox 96% on R/A; Weight 127.01 kg / gr2 280.01 lbs (R); Height 6 ft. 0 in. (182.88 cm) (R); Pain 5/10; 18:41 Body Mass Index 37.97 (127.01 kg, 182.88 cm) gr2 MDM: 19:16 Trimethoprim-Sulfamethoxazole (MRSA dose) 160 mg-800 mg (DS) 2 tabs PO once ordered. dk1 19:16 Wound Care ordered. dk1 19:27 Financial registration complete. gb 19:34 [facility] Payment Agreement was scanned into [employer] and attached to record. gb 12/24 12:11 T-Sheet-- Draft Copy was scanned into [employer] and attached to record. gb Administered Medications: 12/23 19:26 Drug: Trimethoprim-Sulfamethoxazole (MRSA dose) 2 tabs [sulfamethoxazole 800 cz mg-trimethoprim 160 mg tablet (2 tabs)] Route: PO; Signatures: Alexia Krishnan, RN RN srm Daniel Jeffery RN RN cz Dia Lamb, Reg Reg gb Umberto Trivedi, ISABEL angela The chart was reviewed and I authenticate all verbal orders and agree with the evaluation and treatment provided.Attachments: 19:34 [facility] [place] Agreement gb 12/24 12:11 T-Sheet-- Draft Copy gb Chart Complete MTDD
--- NOTE | 2016-12-26 14:26 | EDDOCDS ---
Physician Documentation [facility] Name: Homero Lazar Age: 25 yrs Sex: Male : 1990 Arrival Date: 12/23/2016 Time: 18:39 Bed TR5 Private MD: Other - Complete Info On Cds Disposition: 12/23/16 19:24 Discharged to Home/Self Care. Impression: Cutaneous abscess of left lower limb - Recheck. - Condition is Stable. - Discharge Instructions: Abscess. - Medication Reconciliation, Local Pharmacy Hours form. - Follow up: Jennifer Yañez [facility]; When: 1 - 2 days; Reason: Recheck today's complaints, Continuance of care. Follow up: Emergency Department; When: As needed; Reason: Worsening of conditions. - Problem is an ongoing problem. - Symptoms have improved. Historical: - Allergies: no known allergies; - Home Meds: 1. Bactrim DS 800-160 mg Oral tab 1 tab every 12 hours (Last dose: 12/23/2016 07:00) - PMHx: none; - PSHx: none; - Social history: Smoking status: Patient states was never smoker of tobacco. No barriers to communication noted, The patient speaks fluent Gambian, Speaks appropriately for age. - Family history: Not pertinent. - : The pt / caregiver states he / she is not on anticoagulants. Home medication list is obtained from the patient. - Exposure Risk Screening:: None identified. Vital Signs: 12/23 18:41 BP 126 / 66; Pulse 75; Resp 18 S; Temp 96.4(O); Pulse Ox 96% on R/A; Weight 127.01 kg / gr2 280.01 lbs (R); Height 6 ft. 0 in. (182.88 cm) (R); Pain 5/10; 18:41 Body Mass Index 37.97 (127.01 kg, 182.88 cm) gr2 MDM: 19:16 Trimethoprim-Sulfamethoxazole (MRSA dose) 160 mg-800 mg (DS) 2 tabs PO once ordered. dk1 19:16 Wound Care ordered. dk1 19:27 Financial registration complete. gb 19:34 [facility] Payment Agreement was scanned into [employer] and attached to record. gb 12/24 12:11 T-Sheet-- Draft Copy was scanned into [employer] and attached to record. gb Administered Medications: 12/23 19:26 Drug: Trimethoprim-Sulfamethoxazole (MRSA dose) 2 tabs [sulfamethoxazole 800 cz mg-trimethoprim 160 mg tablet (2 tabs)] Route: PO; Signatures: Alexia Krishnan, RN RN srm Daniel Jeffery RN RN cz Dia Lamb, Reg Reg gb Umberto Trivedi, ISABEL angela The chart was reviewed and I authenticate all verbal orders and agree with the evaluation and treatment provided.Attachments: 19:34 [facility] Payment Agreement gb 12/24 12:11 T-Sheet-- Draft Copy MTDD
--- NOTE | 2016-12-26 14:26 | EDDOCDS ---
Nurse's Notes [facility] Name: Homero Lazar Age: 25 yrs Sex: Male : 1990 Arrival Date: 12/23/2016 Time: 18:39 Bed TR5 Private MD: Other - Complete Info On Cds Diagnosis: Cutaneous abscess of left lower limb-Recheck Presentation: 12/23 18:44 Presenting complaint: Patient states: had abscess drained and packed early Sunday am. srm here for recheck and to have packing removed. left lower leg. Adult Sepsis Screening: The patient does not have new or worsening altered mentation. Patient's respiratory rate is less than 22. Systolic blood pressure is greater than 100. Patient has a qSOFA score of 0- Negative Sepsis Screen. Suicide/Homicide risk assessment- the patient denies having any suicidal and/or homicidal ideations and does not present with any other emotional, behavioral or mental health complaints. 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 Transition of care: patient was not received from another setting of care. 18:44 Acuity: JACK Level 4 [facility] 18:44 Method Of Arrival: Walkin/Carried/Asstd [facility] Triage Assessment: 18:46 General: Appears in no apparent distress, Behavior is appropriate for age, cooperative. srm Pain: Pain currently is 6 out of 10 on a pain scale. HIV screening NA for this visit Offered previously. Historical: - Allergies: no known allergies; - Home Meds: 1. Bactrim DS 800-160 mg Oral tab 1 tab every 12 hours (Last dose: 12/23/2016 07:00) - PMHx: none; - PSHx: none; - Social history: Smoking status: Patient states was never smoker of tobacco. No barriers to communication noted, The patient speaks fluent Ecuadorean, Speaks appropriately for age. - Family history: Not pertinent. - : The pt / caregiver states he / she is not on anticoagulants. Home medication list is obtained from the patient. - Exposure Risk Screening:: None identified. Screenin:33 Screening information is obtained from the patient. Fall risk: No risks identified. cz Assistance ADL's: requires no assistance with activities of daily living. Abuse/DV Screen: The patient / caregiver reports he/she is: not in a situation that causes fear, pain or injury. There is an injury present. Nutritional screening: No deficits noted. Advance Directives: Currently, there is no health care proxy. There is no active DNR order. There is no living will. There is no Power of [place]. Advance directive information has not previously been placed in an [facility] medical record. Further advance directive information is declined. home support is adequate. Assessment: 19:33 Reassessment: Patient appears in no apparent distress at this time. General: Behavior cz is appropriate for age. Vital Signs: 18:41 BP 126 / 66; Pulse 75; Resp 18 S; Temp 96.4(O); Pulse Ox 96% on R/A; Weight 127.01 kg gr2 (R); Height 6 ft. 0 in. (182.88 cm) (R); Pain 5/10; 18:41 Body Mass Index 37.97 (127.01 kg, 182.88 cm) gr2 Vitals: 18:41 Log In Time: December 23, 2016 at 18:41. gr2 ED Course: 18:41 Patient visited by Jigna Mustafa. gr2 18:41 Other - Complete Info On Cds is Private Physician. gr2 18:41 Patient moved to Waiting gr2 18:42 Patient visited by Jigna Mustafa. gr2 18:43 Patient moved to Pre RCE gr2 18:45 Triage Initiated srm 19:08 Umberto Trivedi PA-C is PHCP. dk1 19:08 Jorge Victoria DO is Attending Physician. dk1 19:08 Patient moved to Triage 1 cz 19:10 Patient visited by Umberto Trivedi PA-C. dk1 19:24 [facility] is Referral Physician. dk1 19:27 Patient moved to TR5 cz 19:30 Patient name changed from Homero\S\W\S\Pututau\S\ to Homero\S\Sanchez\S\Pututau. EDMS 19:33 The patient / caregiver is instructed regarding the plan of care and ED course. cz 19:33 No IV's were initiated during this patient's visit. Assist provider with I & D: cz repacking of I&D site. 19:34 [facility] [place] Payment Agreement was scanned into [employer] and attached to record. emery 12/24 12:11 T-Sheet-- Draft Copy was scanned into [employer] and attached to record. gb Administered Medications: 12/23 19:26 Drug: Trimethoprim-Sulfamethoxazole (MRSA dose) 2 tabs [sulfamethoxazole 800 cz mg-trimethoprim 160 mg tablet (2 tabs)] Route: PO; Order Results: There are currently no results for this order. Outcome: 19:24 Discharge ordered by Provider. dk1 19:33 Discharge Assessment: Patient awake, alert and oriented x 3. No cognitive and/or cz functional deficits noted. Patient verbalized understanding of disposition instructions. patient administered narcotics - no. The following High Risk Discharge criteria are identified: None. Discharged to home ambulatory. Condition: stable. Discharge instructions given to patient, Instructed on discharge instructions, follow up and referral plans. Demonstrated understanding of instructions, Pt was receptive of discharge instructions/ teaching. No special radiology studies were completed. Property :Personal belongings accompany Pt. 19:35 Patient left the ED. cz Addendum: 12/26/2016 14:24 Narrative: Wound culture results reviewed with Dr. Estrada and no change in treatment kcs needed. Signatures: Dispatcher [employer] Jeniffer Torres, RICKI RN Alexia Goel RN RN srm Daniel Jeffery RN RN cz Dia Lamb, Reg Reg Umberto Andrew PA-C PA-C dk1 Jigna Mustafa2 MTDD
--- NOTE | 2016-12-26 14:26 | EDDOCDS ---
Physician Documentation [facility] Name: Homero Lazar Age: 25 yrs Sex: Male : 1990 Arrival Date: 12/23/2016 Time: 18:39 Bed TR5 Private MD: Other - Complete Info On Cds Disposition: 12/23/16 19:24 Discharged to Home/Self Care. Impression: Cutaneous abscess of left lower limb - Recheck. - Condition is Stable. - Discharge Instructions: Abscess. - Medication Reconciliation, Local Pharmacy Hours form. - Follow up: Jennifer Yañez [facility]; When: 1 - 2 days; Reason: Recheck today's complaints, Continuance of care. Follow up: Emergency Department; When: As needed; Reason: Worsening of conditions. - Problem is an ongoing problem. - Symptoms have improved. Historical: - Allergies: no known allergies; - Home Meds: 1. Bactrim DS 800-160 mg Oral tab 1 tab every 12 hours (Last dose: 12/23/2016 07:00) - PMHx: none; - PSHx: none; - Social history: Smoking status: Patient states was never smoker of tobacco. No barriers to communication noted, The patient speaks fluent Algerian, Speaks appropriately for age. - Family history: Not pertinent. - : The pt / caregiver states he / she is not on anticoagulants. Home medication list is obtained from the patient. - Exposure Risk Screening:: None identified. Vital Signs: 12/23 18:41 BP 126 / 66; Pulse 75; Resp 18 S; Temp 96.4(O); Pulse Ox 96% on R/A; Weight 127.01 kg / gr2 280.01 lbs (R); Height 6 ft. 0 in. (182.88 cm) (R); Pain 5/10; 18:41 Body Mass Index 37.97 (127.01 kg, 182.88 cm) gr2 MDM: 19:16 Trimethoprim-Sulfamethoxazole (MRSA dose) 160 mg-800 mg (DS) 2 tabs PO once ordered. dk1 19:16 Wound Care ordered. dk1 19:27 Financial registration complete. gb 19:34 [facility] Payment Agreement was scanned into [employer] and attached to record. gb 12/24 12:11 T-Sheet-- Draft Copy was scanned into [employer] and attached to record. gb Administered Medications: 12/23 19:26 Drug: Trimethoprim-Sulfamethoxazole (MRSA dose) 2 tabs [sulfamethoxazole 800 cz mg-trimethoprim 160 mg tablet (2 tabs)] Route: PO; Signatures: Alexia Krishnan, RN RN srm Daniel Jeffery RN RN cz Dia Lamb, Reg Reg gb Umberto Trivedi, ISABEL angela The chart was reviewed and I authenticate all verbal orders and agree with the evaluation and treatment provided.Attachments: 19:34 [facility] [place] gb 12/24 12:11 T-Sheet-- Draft Copy MTDD
--- NOTE | 2016-12-26 14:27 | EDDOCDS ---
Physician Documentation [facility] Name: Homero Lazar Age: 25 yrs Sex: Male : 1990 Arrival Date: 12/23/2016 Time: 18:39 Bed TR5 Private MD: Other - Complete Info On Cds Disposition: 12/23/16 19:24 Discharged to Home/Self Care. Impression: Cutaneous abscess of left lower limb - Recheck. - Condition is Stable. - Discharge Instructions: Abscess. - Medication Reconciliation, Local Pharmacy Hours form. - Follow up: Jennifer Yañez [facility]; When: 1 - 2 days; Reason: Recheck today's complaints, Continuance of care. Follow up: Emergency Department; When: As needed; Reason: Worsening of conditions. - Problem is an ongoing problem. - Symptoms have improved. Historical: - Allergies: no known allergies; - Home Meds: 1. Bactrim DS 800-160 mg Oral tab 1 tab every 12 hours (Last dose: 12/23/2016 07:00) - PMHx: none; - PSHx: none; - Social history: Smoking status: Patient states was never smoker of tobacco. No barriers to communication noted, The patient speaks fluent Indonesian, Speaks appropriately for age. - Family history: Not pertinent. - : The pt / caregiver states he / she is not on anticoagulants. Home medication list is obtained from the patient. - Exposure Risk Screening:: None identified. Vital Signs: 12/23 18:41 BP 126 / 66; Pulse 75; Resp 18 S; Temp 96.4(O); Pulse Ox 96% on R/A; Weight 127.01 kg / gr2 280.01 lbs (R); Height 6 ft. 0 in. (182.88 cm) (R); Pain 5/10; 18:41 Body Mass Index 37.97 (127.01 kg, 182.88 cm) gr2 MDM: 19:16 Trimethoprim-Sulfamethoxazole (MRSA dose) 160 mg-800 mg (DS) 2 tabs PO once ordered. dk1 19:16 Wound Care ordered. dk1 19:27 Financial registration complete. gb 19:34 [facility] Payment Agreement was scanned into [employer] and attached to record. gb 12/24 12:11 T-Sheet-- Draft Copy was scanned into [employer] and attached to record. gb Administered Medications: 12/23 19:26 Drug: Trimethoprim-Sulfamethoxazole (MRSA dose) 2 tabs [sulfamethoxazole 800 cz mg-trimethoprim 160 mg tablet (2 tabs)] Route: PO; Signatures: Alexia Krishnan, RN RN srm Daniel Jeffery RN RN cz Dia Lamb, Reg Reg gb Umberto Trivedi, ISABEL angela The chart was reviewed and I authenticate all verbal orders and agree with the evaluation and treatment provided.Attachments: 19:34 [facility] [place] Agreement gb 12/24 12:11 T-Sheet-- Draft Copy gb Chart Complete MTDD
--- NOTE | 2016-12-26 14:27 | EDDOCDS ---
Nurse's Notes [facility] Name: Homero Lazar Age: 25 yrs Sex: Male : 1990 Arrival Date: 12/23/2016 Time: 18:39 Bed TR5 Private MD: Other - Complete Info On Cds Diagnosis: Cutaneous abscess of left lower limb-Recheck Presentation: 12/23 18:44 Presenting complaint: Patient states: had abscess drained and packed early Sunday am. srm here for recheck and to have packing removed. left lower leg. Adult Sepsis Screening: The patient does not have new or worsening altered mentation. Patient's respiratory rate is less than 22. Systolic blood pressure is greater than 100. Patient has a qSOFA score of 0- Negative Sepsis Screen. Suicide/Homicide risk assessment- the patient denies having any suicidal and/or homicidal ideations and does not present with any other emotional, behavioral or mental health complaints. 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 Transition of care: patient was not received from another setting of care. 18:44 Acuity: JACK Level 4 [facility] 18:44 Method Of Arrival: Walkin/Carried/Asstd [facility] Triage Assessment: 18:46 General: Appears in no apparent distress, Behavior is appropriate for age, cooperative. srm Pain: Pain currently is 6 out of 10 on a pain scale. HIV screening NA for this visit Offered previously. Historical: - Allergies: no known allergies; - Home Meds: 1. Bactrim DS 800-160 mg Oral tab 1 tab every 12 hours (Last dose: 12/23/2016 07:00) - PMHx: none; - PSHx: none; - Social history: Smoking status: Patient states was never smoker of tobacco. No barriers to communication noted, The patient speaks fluent Belarusian, Speaks appropriately for age. - Family history: Not pertinent. - : The pt / caregiver states he / she is not on anticoagulants. Home medication list is obtained from the patient. - Exposure Risk Screening:: None identified. Screenin:33 Screening information is obtained from the patient. Fall risk: No risks identified. cz Assistance ADL's: requires no assistance with activities of daily living. Abuse/DV Screen: The patient / caregiver reports he/she is: not in a situation that causes fear, pain or injury. There is an injury present. Nutritional screening: No deficits noted. Advance Directives: Currently, there is no health care proxy. There is no active DNR order. There is no living will. There is no Power of Seamer [employer]. Advance directive information has not previously been placed in an [facility] medical record. Further advance directive information is declined. home support is adequate. Assessment: 19:33 Reassessment: Patient appears in no apparent distress at this time. General: Behavior cz is appropriate for age. Vital Signs: 18:41 BP 126 / 66; Pulse 75; Resp 18 S; Temp 96.4(O); Pulse Ox 96% on R/A; Weight 127.01 kg gr2 (R); Height 6 ft. 0 in. (182.88 cm) (R); Pain 5/10; 18:41 Body Mass Index 37.97 (127.01 kg, 182.88 cm) gr2 Vitals: 18:41 Log In Time: December 23, 2016 at 18:41. gr2 ED Course: 18:41 Patient visited by Jigna Mustafa. gr2 18:41 Other - Complete Info On Cds is Private Physician. gr2 18:41 Patient moved to Waiting gr2 18:42 Patient visited by Jigna Mustafa. gr2 18:43 Patient moved to Pre RCE gr2 18:45 Triage Initiated srm 19:08 Umberto Trivedi PA-C is PHCP. dk1 19:08 Jorge Victoria DO is Attending Physician. dk1 19:08 Patient moved to Triage 1 cz 19:10 Patient visited by Umberto Trivedi PA-C. dk1 19:24 [facility] is Referral Physician. dk1 19:27 Patient moved to TR5 cz 19:30 Patient name changed from Homero\S\W\S\Pututau\S\ to Homero\S\Sanchez\S\Pututau. EDMS 19:33 The patient / caregiver is instructed regarding the plan of care and ED course. cz 19:33 No IV's were initiated during this patient's visit. Assist provider with I & D: cz repacking of I&D site. 19:34 [facility] Payment Agreement was scanned into [employer] and attached to record. emery 12/24 12:11 T-Sheet-- Draft Copy was scanned into [employer] and attached to record. gb Administered Medications: 12/23 19:26 Drug: Trimethoprim-Sulfamethoxazole (MRSA dose) 2 tabs [sulfamethoxazole 800 cz mg-trimethoprim 160 mg tablet (2 tabs)] Route: PO; Order Results: There are currently no results for this order. Outcome: 19:24 Discharge ordered by Provider. dk1 19:33 Discharge Assessment: Patient awake, alert and oriented x 3. No cognitive and/or cz functional deficits noted. Patient verbalized understanding of disposition instructions. patient administered narcotics - no. The following High Risk Discharge criteria are identified: None. Discharged to home ambulatory. Condition: stable. Discharge instructions given to patient, Instructed on discharge instructions, follow up and referral plans. Demonstrated understanding of instructions, Pt was receptive of discharge instructions/ teaching. No special radiology studies were completed. Property :Personal belongings accompany Pt. 19:35 Patient left the ED. cz Addendum: 12/26/2016 14:24 Narrative: Wound culture results reviewed with Dr. Estrada and no change in treatment kcs needed. Signatures: Dispatcher [employer] Jeniffer Torres RN RN Alexia Goel RN RN srm Daniel Jeffery RN RN cz Dia Lamb, Reg Reg Umberto Andrew PA-C PA-C dk1 Jigna Mustafa2 Chart Complete MTDD
--- NOTE | 2016-12-26 14:27 | EDDOCDS ---
Physician Documentation [facility] Name: Homero Lazar Age: 25 yrs Sex: Male : 1990 Arrival Date: 12/23/2016 Time: 18:39 Bed TR5 Private MD: Other - Complete Info On Cds Disposition: 12/23/16 19:24 Discharged to Home/Self Care. Impression: Cutaneous abscess of left lower limb - Recheck. - Condition is Stable. - Discharge Instructions: Abscess. - Medication Reconciliation, Local Pharmacy Hours form. - Follow up: Jennifer Yañez [facility]; When: 1 - 2 days; Reason: Recheck today's complaints, Continuance of care. Follow up: Emergency Department; When: As needed; Reason: Worsening of conditions. - Problem is an ongoing problem. - Symptoms have improved. Historical: - Allergies: no known allergies; - Home Meds: 1. Bactrim DS 800-160 mg Oral tab 1 tab every 12 hours (Last dose: 12/23/2016 07:00) - PMHx: none; - PSHx: none; - Social history: Smoking status: Patient states was never smoker of tobacco. No barriers to communication noted, The patient speaks fluent Indian, Speaks appropriately for age. - Family history: Not pertinent. - : The pt / caregiver states he / she is not on anticoagulants. Home medication list is obtained from the patient. - Exposure Risk Screening:: None identified. Vital Signs: 12/23 18:41 BP 126 / 66; Pulse 75; Resp 18 S; Temp 96.4(O); Pulse Ox 96% on R/A; Weight 127.01 kg / gr2 280.01 lbs (R); Height 6 ft. 0 in. (182.88 cm) (R); Pain 5/10; 18:41 Body Mass Index 37.97 (127.01 kg, 182.88 cm) gr2 MDM: 19:16 Trimethoprim-Sulfamethoxazole (MRSA dose) 160 mg-800 mg (DS) 2 tabs PO once ordered. dk1 19:16 Wound Care ordered. dk1 19:27 Financial registration complete. gb 19:34 [facility] Payment Agreement was scanned into [employer] and attached to record. gb 12/24 12:11 T-Sheet-- Draft Copy was scanned into [employer] and attached to record. gb Administered Medications: 12/23 19:26 Drug: Trimethoprim-Sulfamethoxazole (MRSA dose) 2 tabs [sulfamethoxazole 800 cz mg-trimethoprim 160 mg tablet (2 tabs)] Route: PO; Signatures: Alexia Krishnan, RN RN srm Daniel Jeffery RN RN cz Dia Lamb, Reg Reg gb Umberto Trivedi, ISABEL angela The chart was reviewed and I authenticate all verbal orders and agree with the evaluation and treatment provided.Attachments: 19:34 [facility] Payment Agreement gb 12/24 12:11 T-Sheet-- Draft Copy gb Chart Complete MTDD
== END 2016-12-23 19:35 | disposition home or self-care (01) ==
LOC: M ED 18:39
DX: L02.416 Cutaneous abscess of left lower limb (principal); Z51.89 Encounter for other specified aftercare